=== PATIENT | male | born 1995 | race Caucasian/White ===

== ENCOUNTER 2025-01-11 00:08 | Emergency (ER) | payer OTHER ==
[~2025-01-11] VITALS: Ht 162.6 cm; Wt 68.0 kg
[2025-01-11 00:11] VITALS: O2SAT 99
[2025-01-11] MEDS: LIDOCAINE HCL 1% 20ML VIAL INFIL ONE (01:00)
[2025-01-11 01:30] LABS: BASOPHILS % 0.6 % (0.0-2.0); EOSINOPHILS % 0.5 % (0.0-5.0); HEMATOCRIT. 42.9 % (42.0-52.0); HEMOGLOBIN. 14.4 g/dL (14.0-18.0); LYMPHOCYTES % 15.5 % (20.0-50.0); MEAN PLATELET VOLUME 8.9 fl (7.4-10.4); MONOCYTES % 4.1 % (2.0-8.0); NEUTROPHILS % 79.3 % (40.0-76.0); PLATELET 233 x1000/uL (130-400); RED BLOOD CELL COUNT 4.94 mill/uL (4.7-6.1); RED CELL DISTRIBUTION WIDTH 13.6 % (11.6-14.6)
[2025-01-11 01:46] LABS: CREATININE 0.9 mg/dL (0.6-1.3); ETHANOL BLOOD 267 mg/dL (<10); UREA NITROGEN BLOOD 8 mg/dL (9-23)
[2025-01-11] MEDS: SODIUM CHLORIDE 0.9% 1,000 ML IV ONE (02:51)
[2025-01-11 05:12] VITALS: BP 115/62; PULSE 68; RESP 19; TEMP 36.8; O2SAT 96
== END 2025-01-11 05:11 | disposition home or self-care (01) ==
LOC: ER 01:09
DX: S01.81XA Laceration without foreign body of other part of head, initial encounter (principal); F10.129 Alcohol abuse with intoxication, unspecified; W10.9XXA Fall (on) (from) unspecified stairs and steps, initial encounter; Y93.89 Activity, other specified; Y92.89 Other specified places as the place of occurrence of the external cause; Y99.8 Other external cause status
CPT/HCPCS: 80048; 80320; 85025; 36415; 70450; 70486; 12013; 96360; 96361; 99284; J2003; J7030; G0480